=== PATIENT | male | born 1960 | race Caucasian/White ===

== ENCOUNTER 2020-10-28 18:46 | Observation (INO) | payer OTHER ==
--- NOTE | 2020-10-28 19:34 | ED Physician Documentation ---
PD HPI FOCAL NEURO - Stated complaint Stated Complaint: STROKE SYMPTOMS X4 DAYS - Chief complaint Chief Complaint: Neuro - History obtained from History obtained from: Patient, Family, EMS - History of Present Illness Timing - duration: Minutes (5) Timing - details: Abrupt onset, Intermittant Contributing factors: negative: Anticoagulated, Vascular dz, Atrial fibrillation, Prosthetic heart valve Baseline status: positive: A&OX3, ambulatory, indep Similar symptoms before: Has not had sx before Recently seen: Not recently seen - Additional information Additional information: Patient is a 60-year-old male who presents to the emergency department with intermittent strokelike symptoms for the past 4 days. He states that it started about 4 days ago. His states that he was asleep and started screaming in his sleep. When he woke up he walked to the bathroom, fell and struck his head. She states that he was confused for the next 6 hours. He did not know who he was. He kept back asking repetitive questions. Nothing made it better or worse. He did not know the person who had been living in their house with him for the past 2 months. He refused to come in at that time. He states that this afternoon he had difficulty speaking and forming words. He states this lasted about 5 minutes. Nothing made it better or worse. Has not had similar symptoms previously. Upon arrival to the emergency department he had another episode that lasted approximately 2 minutes of difficulty forming words. No numbness or tingling. No focal weakness. No facial droop Review of Systems Ten Systems: 10 systems reviewed and negative Constitutional: denies: Fever, Chills Cardiac: denies: Chest pain / pressure, Palpitations Respiratory: denies: Dyspnea, Cough GI: denies: Abdominal Pain, Nausea, Vomiting, Diarrhea : denies: Dysuria Skin: denies: Rash Musculoskeletal: denies: Neck pain, Back pain Neurologic: denies: Headache PD PAST MEDICAL HISTORY - Past Medical History Past Medical History: No - Past Surgical History Past Surgical History: No - Allergies Allergies/Adverse Reactions: Allergies Allergy/AdvReac Type Severity Reaction Status Date / Time No Known Drug Allergies Allergy Verified 10/28/20 18:59 - Living Situation Living Situation: reports: With family Living Arrangement: reports: At home - Social History Does the pt smoke?: No Does the pt drink ETOH?: Yes Does the pt have substance abuse?: Yes Substance Use and Type: Marijuana - Family History Family history: reports: Non contributory PD ED PE NORMAL - Vitals Vital signs reviewed: Yes - General General: Alert and oriented X 3, No acute distress, Well developed/nourished - HEENT HEENT: PERRL, Other (Small abrasion to the forehead. No scalp hematomas. No palpable fractures.) - Neck Neck: Supple, no meningeal sign - Cardiac Cardiac: RRR, Strong equal pulses - Respiratory Respiratory: No respiratory distress, Clear bilaterally - Abdomen Abdomen: Soft, Non tender, Non distended - Back Back: No spinal TTP - Derm Derm: Warm and dry - Extremities Extremities: No edema, No calf tenderness / cord - Neuro Neuro: Alert and oriented X 3, fulfillment representative 2-12 intact, No motor deficit, No sensory d eficit, Normal speech Eye Opening: Spontaneous Motor: Obeys Commands Verbal: Oriented GCS Score: 15 - Psych Psych: Normal mood, Normal affect NIHSS - Time Time: 19:30 - Level of Consciousness Level of consciousness: (0) Alert, Keenly responsive LOC Questions: (0) Answers both Q's correct LOC Commands: (0) Performs both correctly - Gaze Best Gaze: (0) Normal - Visual Visual: (0) No loss - Facial Palsy Facial Palsy: (0) Normal, symmetrical movement - Motor Arms (both separate) Motor Arm (right): (0) No drift Motor Arm (left): (0) No drift - Motor Legs (both separate) Motor Leg (right): (0) No drift Motor Leg (left): (0) No drift - Limb Ataxia Limb Ataxia: (0) Absent - Sensory Sensory: (0) Normal - Best Language Best Language: (0) No aphasia - Dysarthria Dysarthria: (0) Normal - Extinction and Inattention (formally neg Extinction and inattention: (0) No abnormality - Total Score/Results Total Score/Result: 0 Results - Vitals Vitals: Vital Signs - 24 hr 10/28/20 10/28/20 10/28/20 18:52 19:41 21:54 Temperature 36.7 C Heart Rate 98 64 66 Respiratory 16 16 16 Rate Blood Pressure 163/96 H 154/60 H 119/78 O2 Saturation 98 98 Oxygen O2 Source Room air - EKG (time done) 1906 Rate: Rate (enter#) (74) Rhythm: NSR Prospect: Normal Intervals: Normal SD QRS: Normal Ischemia: Normal ST segments - Labs Labs: Laboratory Tests 10/28/20 10/28/20 10/28/20 19:29 19:29 19:29 WBC 7.5 RBC 5.22 Hgb 15.9 Hct 46.4 MCV 88.9 MCH 30.5 MCHC 34.3 RDW 13.2 Plt Count 326 MPV 9.1 Neut # (Auto) Not Reportable Lymph # (Auto) Not Reportable [place] # (Auto) Not Reportable Eos # (Auto) Not Reportable Baso # (Auto) Not Reportable Absolute Nucleated RBC Not Reportable Total Counted 100 Band Neuts % (Manual) 0 Reactive Lymphs % (Man) 6 Abnorm Lymph % (Manual) 0 Nucleated RBC % Not Reportable Neutrophils # (Manual) 4.4 Lymphocytes # (Manual) 2.5 Monocytes # (Manual) 0.5 Eosinophils # (Manual) 0.1 Basophils # (Manual) 0.0 Differential Comment MANUAL DIFFERENTIAL WBC Morphology NORMAL APPEARANCE Platelet Estimate NORMAL (130-450,000) Platelet Morphology NORMAL APPEARANCE RBC Morph Micro Appear NORMAL APPEARANCE PT 13.2 H INR 1.2 APTT 28.7 Sodium 138 Potassium 3.8 Chloride 104 Carbon Dioxide 25 Anion Gap 9.0 BUN 19 Creatinine 0.8 Estimated GFR (MDRD) 98 Glucose 114 H Calcium 9.0 Total Bilirubin 0.8 AST 29 ALT 43 Alkaline Phosphatase 55 Total Protein 7.5 Albumin 4.4 Globulin 3.1 Albumin/Globulin Ratio 1.4 Lipase 22 Urine Color Urine Clarity Urine pH Ur Specific [place] Urine Protein Urine Glucose (UA) Urine Ketones Urine Occult Blood Urine Nitrite Urine Bilirubin Urine Urobilinogen Ur Leukocyte Esterase Urine RBC Urine WBC Ur Squamous Epith Cells Urine Crystals Amorphous Sediment Urine Bacteria Ur Microscopic Review Urine Culture Comments 10/28/20 19:40 WBC RBC Hgb Hct MCV MCH MCHC RDW Plt Count MPV Neut # (Auto) Lymph # (Auto) [place] # (Auto) Eos # (Auto) Baso # (Auto) Absolute Nucleated RBC Total Counted Band Neuts % (Manual) Reactive Lymphs % (Man) Abnorm Lymph % (Manual) Nucleated RBC % Neutrophils # (Manual) Lymphocytes # (Manual) Monocytes # (Manual) Eosinophils # (Manual) Basophils # (Manual) Differential Comment WBC Morphology Platelet Estimate Platelet Morphology RBC Morph Micro Appear PT INR APTT Sodium Potassium Chloride Carbon Dioxide Anion Gap BUN Creatinine Estimated GFR (MDRD) Glucose Calcium Total Bilirubin AST ALT Alkaline Phosphatase Total Protein Albumin Globulin Albumin/Globulin Ratio Lipase Urine Color YELLOW Urine Clarity HAZY Urine pH 5.5 Ur Specific [place] >=1.030 H Urine Protein 30 H Urine Glucose (UA) NEGATIVE Urine Ketones TRACE Urine Occult Blood LARGE H Urine Nitrite NEGATIVE Urine Bilirubin NEGATIVE Urine Urobilinogen 0.2 (NORMAL) Ur Leukocyte Esterase TRACE H Urine RBC 6-10 H Urine WBC 11-25 H Ur Squamous Epith Cells RARE Squamous Urine Crystals 3-5 Uric Acid Amorphous Sediment Few Urine Bacteria Rare Ur Microscopic Review INDICATED Urine Culture Comments INDICATED - Rads (name of study) head CT w/o Radiology: Prelim report reviewed, EMP read contemporaneously, See rad report (No acute intracranial abnormality) CTA head Radiology: Prelim report reviewed, EMP read contemporaneously, See rad report (No acute abnormality) CTA neck Radiology: Prelim report reviewed, EMP read contemporaneously, See rad report (No acute abnormality) PD MEDICAL DECISION MAKING - ED course Complexity details: reviewed results, re-evaluated patient, considered differential, d/w patient, d/w franchise field consultant ED course: 60-year-old male with what appears to be TIAs. We will place in observation for further work-up including MRI. Discussed the case with Dr. Landers, hospitalist who accepts This document was made in part using voice recognition software. While efforts are made to proofread this document, sound alike and grammatical errors may occur. Departure - Departure Disposition: ED Place in Observation Clinical Impression: TIA (transient ischemic attack), Expressive aphasia Condition: Stable
[2020-10-28 19:38] LABS: BASOPHILS % (AUTO) 0.5 %; EOSINOPHILS % (AUTO) 2.5 %; HCT - HEMATOCRIT 46.4 % (42.0-52.0); HGB - HEMOGLOBIN 15.9 g/dL (14.0-18.0); LYMPHOCYTES % (AUTO) 25.9 %; MEAN CORPUSCULAR HEMOGLOBIN 30.5 pg (27.0-31.0); MEAN CORPUSCULAR HGB CONC 34.3 g/dL (32.0-36.0); MEAN CORPUSCULAR VOLUME 88.9 fL (80.0-94.0); MEAN PLATELET VOLUME 9.1 fL (7.4-11.4); MONOCYTES % (AUTO) 8.4 %; NEUTROPHILS % (AUTO) 62.6 %; PLT - PLATELET COUNT 326 10^3/uL (130-450); RED BLOOD COUNT 5.22 10^6/uL (4.70-6.10); RED CELL DISTRIBUTION WIDTH 13.2 % (12.0-15.0); WHITE BLOOD COUNT 7.5 x10^3/uL (4.8-10.8)
[2020-10-28 19:42] LABS: ABNORMAL LYMPHS % (MANUAL) 0 %; BAND NEUTROPHILS % (MANUAL) 0 %
[2020-10-28 19:49] LABS: ALBUMIN 4.4 g/dL (3.2-5.5); ALBUMIN/GLOBULIN RATIO 1.4 (1.0-2.2); BILIRUBIN,TOTAL 0.8 mg/dL (0.2-1.0); CREATININE 0.8 mg/dL (0.6-1.2); POTASSIUM 3.8 mmol/L (3.5-5.0); TOTAL PROTEIN 7.5 g/dL (6.7-8.2)
[2020-10-28 19:53] LABS: BILIRUBIN,URINE NEGATIVE (NEGATIVE); GLUCOSE, URINE (UA) NEGATIVE (NEGATIVE); KETONES,URINE (UA) TRACE mg/dL (NEGATIVE); LEUKOCYTE ESTERASE, URINE TRACE (NEGATIVE); NITRITE,URINE NEGATIVE (NEGATIVE); OCCULT BLOOD,URINE LARGE (NEGATIVE); PH,URINE 5.5 PH (5.0-7.5); PROTEIN,URINE 30 mg/dL (NEGATIVE); UROBILINOGEN,URINE 0.2 (NORMAL) E.U./dL (NORMAL)
[2020-10-28 19:54] LABS: INR 1.2 (0.8-1.2); PT - PROTHROMBIN TIME 13.2 secs (9.9-12.6)
[2020-10-28 19:54] LABS: CLARITY,URINE HAZY (CLEAR)
[2020-10-28 20:01] LABS: PARTIAL THROMBOPLASTIN TIME 28.7 secs (24.9-33.3)
[2020-10-28 20:08] LABS: AMORPHOUS SEDIMENT,UR Few /LPF; BACTERIA,URINE Rare /HPF (None Seen); CRYSTALS,URINE 3-5 Uric Acid /LPF; SQUAMOUS EPITHELIAL CELL,UR RARE Squamous (<= Few)
--- NOTE | 2020-10-28 20:08 | CT Report ---
PROCEDURE: Head W/O Stroke Protocol INDICATIONS: dysarthria TECHNIQUE: Noncontrast 4.5 mm thick angled axial sections acquired from the foramen magnum to the vertex, with c oronal reformats. For radiation dose reduction, the following was used: automated exposure control, adjustment of mA and/or kV according to patient size. COMPARISON: FINDINGS: Image quality: Excellent. CSF spaces: Basal cisterns are patent. No extra-axial fluid collections. Ventricles are normal in size and shape. Brain: No midline shift. No intracranial masses or hemorrhage. No mass effect. Beth-white matter i nterface is normal. There cerebral volume loss for age with resultant ventricular and sulcal prominen ce. There are periventricular and deep white matter chronic small vessel ischemic changes. Atheroscle rotic calcifications are noted in the intracranial segments of the bilateral internal carotid arterie s. Skull and face: Calvarium and visualized facial bones are intact, without suspicious lesions. Sinuses: Mild scattered ethmoid and sphenoid sinus mucosal thickening. Remainder of the visualized pa ranasal sinuses and mastoids are clear. IMPRESSION: 1. CT head without acute intracranial abnormalities. 2. No acute calvarial fractures. 3. Age-related senescent changes and sequela of chronic small vessel ischemic disease. 4. Mild ethmoid and sphenoid sinus disease. Findings were discussed with Dr. Orellana at 2005 hrs This study fulfills neurological imaging criteria for inclusion or exclusion of acute stroke therapie s based on available published neurological imaging guidelines. Reviewed by: Denzel Maravilla MD on 10/28/2020 8:06 PM PDT Approved by: Denzel Maravilla MD on 10/28/2020 8:06 PM PDT Station ID: [id number]
[2020-10-28 20:32] LABS: DIFFERENTIAL COMMENT MANUAL DIFFERENTIAL; EOSINOPHILS # (MANUAL) 0.1 10^3/uL (0-0.7); LYMPHOCYTES # (MANUAL) 2.5 10^3/uL (1.5-3.5); LYMPHOCYTES % (MANUAL) 27 %; MONOCYTES # (MANUAL) 0.5 10^3/uL (0.0-1.0); NEUTROPHILS # (MANUAL) 4.4 10^3/uL (1.5-6.6); PLATELET ESTIMATE, MANUAL NORMAL (130-450,000) (NORMAL); PLATELET MORPHOLOGY NORMAL APPEARANCE (NORMAL); RBC MORPHOLOGY (MULTIPLE) NORMAL APPEARANCE (NORMAL); REACTIVE LYMPHS % (MANUAL) 6 %; WBC MORPHOLOGY (MULTIPLE) NORMAL APPEARANCE (NORMAL)
[2020-10-28] MEDS ORDERED: IOVERSOL 320 100 ML VIAL IVP ONE ×2 (20:48→22:51)
[2020-10-28] MEDS ORDERED: MORPHINE 2 MG/ML CARPUJECT IVP PRN (23:09)
[2020-10-28] MEDS ORDERED: SODIUM CHLORIDE FLUSH 0.9% 10 ML SYRINGE IVP PRN (23:09)
[2020-10-28] MEDS ORDERED: ACETAMINOPHEN 325 MG TABLET PO PRN (23:09)
[2020-10-28] MEDS ORDERED: ONDANSETRON ODT 4 MG TABLET TL PRN (23:09)
[2020-10-28] MEDS ORDERED: oxyCODONE 5 MG TABLET PO PRN (23:09)
[2020-10-28] MEDS ORDERED: ASPIRIN 325 MG TABLET PO STA (23:11)
--- NOTE | 2020-10-28 23:18 | HISTORY & PHYSICAL EXAMINATION ---
Chief Complaint - Chief Complaint Chief Complaint: Expressive aphasia History of Present Illness - Admitted From Admitted From:: Home - History Obtained From Records Reviewed: [facility] History obtained from: Dr. Orellana Exam Limitations: None - History of Present Illness HPI Comment/Other: The patient is a 60-year-old male who does not have any past medical history of diabetes, hypertension, hyperlipidemia. He occasionally smokes marijuana but he does not smoke nicotine. He has no history of alcohol abuse. He states that he does not have a primary care provider that he is seen in a very long time. He is a [facility] patient and is establish himself with a new provider but has not seen her yet. 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 He said it was at some clinic that he can even remember where that was. He presented to the emergency room today via EMS when family called them. Today's Tuesday. On Tuesday, 4 days ago, he awoke from sleep, seemed startled, and was screaming in his sleep. He did stop screaming but developed confusion. He says he remembers things but did not understand why he was doing what he was doing. For instance he gives me an exa mple of grabbing his 's shirt, balling it up in his hands, letting it go. But doing it repetitively, over and over. The confusion lasted for about 6 hours. Although his was present, in front of him, speaking to him, she stated "it is as if I was not there." During that episode of confusion he got up to go to the bathroom and fell and hit his head. It was a witnessed fall. His was behind him as she helped him go to the bathroom. He tripped over the bathroom rug. No loss of consciousness, no dizziness. He landed on his left shoulder, hit his chin, and the top of his head/forehead. No loss of consciousness. He kept on asking repetitive questions. He did not recognize people who were living in the home with him. He refused to come be evaluated. Today he had a 5-minute episode where he had difficulty speaking and could not form his words. 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 He been on the phone all day long, and was also completing an article. 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 He was on the phone with the client when he suddenly found himself unable to express what he wanted to say. He could hear her, understand her, but he could not respond back. There is been no antecedent fever, chills, headache. He denied any facial droop, dysarthria, unilateral weakness of any limb. He did feel like he was suddenly "top-heavy". It felt as if the top of his head was full of fluid and that he was suddenly off balance. Other than that one fall in the bathroom, the does not report any other falls. He denies a history of palpitations, fast heart rate, leg edema, orthopnea. He denies a history of obs tructive sleep apnea. He is currently trying to diet and exercise. He was over 350 pounds. He is lost about 75 pounds. He denies using any ikry-ahr-depocnn diet medications. He has no history of substance abuse. Although he uses cannabis, he denies cocaine/heroin, methamphetamines, ecstasy, etc. He was evaluated in the emergency room by Dr. Orellana. Temperature was 36.7. Heart rate 98. Blood pressure 163/96. Respirations 16 and 98% on room air. He was alert and oriented in the emergency room without any motor deficit. Cranial nerves were intact. He had normal speech. He was keenly responsive and NIHSS score was 0. CT of the head is negative. CT angiogram was also done and final report is not available to me. Dr. Sanchez verbally reported that he has no "carotid stenosis, intracranial blocked arteries". Patient is now placed in observation for TIA. History - Past Medical History Cardiovascular: reports: Other (Morbid obesity) Respiratory: reports: None Neuro: reports: None Endocrine/Autoimmune: reports: None GI: reports: None : reports: None HEENT: reports: None Psych: reports: None Musculoskeletal: reports: Other (Right knee infection requiring surgery and treatment 1993.) Derm: reports: None MRSA Hx?: No - Past Surgical History HEENT: reports: Tonsil/Adenoidectomy - Family & Social History Family History Comment/Other: Mom at age 80. She of metastatic breast cancer. Dad at approximately age 76. There is a question if he was truly his father. He was an alcoholic, diabetic, and after fading away from being on dialysis. 1 brother has alcohol abuse issues. He is not in contact with him. No children. Living arrangement: At home Living Situation: With spouse/s.o. Social History Notes: He is from [place]. Moved to [place] at the age of 1 due to his father's work. Grew up in [place], moved to [facility] in [place]. Retired as a electrical research engineer in 2007. He has been to his first for 36 years. They consciously decided not to have any children. He drinks maybe 1 beer a month. Denies any history of recreational substance abuse other than cannabis. Has never smoked tobacco products. - POLST Patient has POLST: No POLST Status: DNR (He says that he has paperwork at home, he does not want to be resuscitated if he has a cardiopulmonary arrest. However he would like all other measures done including transfusions, antibiotics, surgeries, BiPAP, oxygen, ICU care with pressors, etc. if needed) Meds/Allgy - Allergies Allergies/Adverse Reactions: Allergies Allergy/AdvReac Type Severity Reaction Status Date / Time No Known Drug Allergies Allergy Verified 10/28/20 18:59 Review of Systems - Other Findings Other Findings: 13 point review of systems is negative other than what is in history of present illness. The only positive findings that he also describes is out of increased urinary frequency, nocturia is 2-3 times a night. Denies erectile dysfunction. Prior Level of Functionality: Patient is completely independent with activities of daily living, pays bills, drives a car, does household assistant. Still running a business out of his home. Exam - Vital Signs Reviewed Vital Signs: Yes Vital Signs: Vital Signs x48h Temp Pulse Resp BP Pulse Ox 10/28/20 21:54 66 16 119/78 98 10/28/20 19:41 64 16 154/60 H 10/28/20 18:52 36.7 C 98 16 163/96 H 98 - Physical Exam General Appearance: positive: No acute distress, Alert, Other (5 foot 8 inch morbidly obese male 118 kg.Bearded, lucid, normal speech patterns.) Eyes Bilateral: positive: PERRL, EOMI ENT: positive: Pharynx nml Neck: positive: No JVD. negative: Lymphadenopathy (R), Lymphadenopathy (L), Stiff neck, Carotid bruit Respiratory: positive: No respiratory distress, Other (Large barrel chest). negative: Wheezes, Rales, Rhonchi Cardiovascular: positive: Regular rate & rhythm, No murmur, No gallop. negative: Friction rub Peripheral Pulses: positive: 1+ Abdomen: positive: Non-tender, No organomegaly, Nml bowel sounds, No distention, Other (Protuberant, large abdominal pannus) Skin: positive: Warm, Dry. negative: Diaphoresis, Pallor Extremities: positive: Non-tender, Full ROM, Nml appearance Neurologic/Psychiatric: positive: Oriented x3, CN's nml (2-12), Motor nml, Sensation nml Reflexes: Bicep (R): 3+, Bicep (L): 3+, Knee (R): 2+, Knee (L): 2+, Ankle (R): 1+, Ankle (L): 1+ Babinski Reflex: Right: Down, Left: Down Conclusion/Plan - Problem List (1) TIA (transient ischemic attack) Conclusion/Plan: This is a gentleman who is 60 years old and risk factors include male sex but no diabetes, hypertension, hyperlipidemia. He does not smoke. Negative family history. He presents as an interesting episode of screaming a few days ago, waking him from sleep. Then confusion. This lasted about 6 hours. Refused to come in. Now he has had 5 minutes of expressive aphasia at home, and 2 minutes of expressive aphasia here. ABCD 2 score calculation is 3 points. He has a low stroke risk of 1%. With that in mind, aspirin 325 mg alone without Plavix would be indicated. This is an unusual presentation. It only involves speech, the repetitive statem ents. Also the unconscious grabbing and needing of objects. No associated focal deficits.I have thought about substance abuse, meningitis, arrhythmia as a possible cause. Plan: Observation status Aspirin 325 daily with first dose now Lipid panel in a.m. Permissive hypertension. MRI of head Echocardiogram Telemetry No lumbar puncture at this time Recommend neurology evaluation. He will keep his appointment with his primary care provider through [facility], and have asked him to make sure they refer him to neurology for an opinion. - Lab Results Lab results reviewed: Yes Fish Bones: 10/28/20 19:29 10/28/20 19:29 - Diagnostic Imaging Results Diagnostic Imaging Results: positive: Final report reviewed Diagnostic Imaging Results Comments: Head CT without acute intracranial abnormalities. No acute calvarial fractures. Age-related senescent changes, mild ethmoid and sphenoid sinus disease. CT angiogram report was called to Dr. Sanchez. He verbally reported that he has no carotid stenosis or intracranial arterial disease. Final report pending - EKG Results EKG Interpreted Independently: No Core Measures - Anticipated LOS I expect patient to be DC'd or transferred within 96 hours.: Yes - DVT/VTE - Prophylaxis VTE/DVT Device ordered at admit?: Yes
[2020-10-29] MEDS: SODIUM CHLORIDE FLUSH 0.9% 10 ML SYRINGE IVP SCH ×2 (00:19→09:55)
[2020-10-29 03:23] LABS: B. PARAPERTUSSIS- RESP PCR PAN NOT DETECTED; B. PERTUSSIS- RESP PCR PANEL NOT DETECTED; C. PNEUMONIAE- RESP PCR PANEL NOT DETECTED; CORONAVIRUS 229E-RESP PCR NOT DETECTED; CORONAVIRUS HKU1-RESP PCR NOT DETECTED; CORONAVIRUS NL63-RESP PCR NOT DETECTED; CORONAVIRUS OC43-RESP PCR NOT DETECTED; HUMAN METAPNEUMOVIRUS NOT DETECTED; INFLUENZA A- RESP PCR PANEL NOT DETECTED; INFLUENZA B - RESP PCR PANEL NOT DETECTED; M. PNEUMONIAE- RESP PCR PANEL NOT DETECTED; PARAINFLUENZA VIRUS 1 NOT DETECTED; PARAINFLUENZA VIRUS 2 NOT DETECTED; PARAINFLUENZA VIRUS 3 NOT DETECTED; PARAINFLUENZA VIRUS 4 NOT DETECTED; RHINOVIRUS/ENTEROVIRUS NOT DETECTED; RSV- RESP PCR PANEL NOT DETECTED; SARS-CoV-2 -RESP PCR PANEL NOT DETECTED
[2020-10-29 08:20] LABS: BASOPHILS # (AUTO) 0.1 10^3/uL (0.0-0.1); BASOPHILS % (AUTO) 0.7 %; EOSINOPHILS % (AUTO) 0.1 %; HCT - HEMATOCRIT 44.9 % (42.0-52.0); HGB - HEMOGLOBIN 15.5 g/dL (14.0-18.0); LYMPHOCYTES # (AUTO) 1.8 10^3/uL (1.5-3.5); LYMPHOCYTES % (AUTO) 25.3 %; MEAN CORPUSCULAR HEMOGLOBIN 30.6 pg (27.0-31.0); MEAN CORPUSCULAR HGB CONC 34.5 g/dL (32.0-36.0); MEAN CORPUSCULAR VOLUME 88.7 fL (80.0-94.0); MONOCYTES # (AUTO) 0.6 10^3/uL (0.0-1.0); MONOCYTES % (AUTO) 8.7 %; NEUTROPHILS # (AUTO) 4.5 10^3/uL (1.5-6.6); NEUTROPHILS % (AUTO) 64.9 %; PLT - PLATELET COUNT 295 10^3/uL (130-450); RED BLOOD COUNT 5.06 10^6/uL (4.70-6.10); RED CELL DISTRIBUTION WIDTH 13.2 % (12.0-15.0); WHITE BLOOD COUNT 6.9 x10^3/uL (4.8-10.8)
[2020-10-29 08:37] LABS: BUN - BLOOD UREA NITROGEN 19 mg/dL (6-20); CALCIUM 8.8 mg/dL (8.5-10.3); CARBON DIOXIDE - CO2 26 mmol/L (21-32); CHLORIDE 102 mmol/L (101-111); CHOL/HDL RATIO 6.2 (<5.0); CHOLESTEROL 193 mg/dL; CREATININE 0.8 mg/dL (0.6-1.2); GFR - MDRD 98 (>89); GLUCOSE 127 mg/dL (70-100); HDL CHOLESTEROL 31 mg/dL; LDL CHOLESTEROL,CALCULATED 142 mg/dL; LDL/HDL RATIO 4.6 (<3.6); POTASSIUM 3.8 mmol/L (3.5-5.0); SODIUM 138 mmol/L (135-145); TRIGLYCERIDES 102 mg/dL; VLDL CHOLESTEROL 20 mg/dL
--- NOTE | 2020-10-29 08:50 | CT Report ---
PROCEDURE: ANGIO HEAD W/WO INDICATIONS: dysarthria, aphasia CONTRAST: IV CONTRAST: Optiray 320 ml: 80 PO CONTRAST: *NO PO CONTRAST TECHNIQUE: Precontrast 4.5 mm thick angled axial sections acquired from the foramen magnum to the vertex. Afte r the administration of intravenous contrast, 1 mm thick sections acquired through the [place] of [place] is. Postcontrast 4.5 mm thick sections then re-acquired from the foramen magnum to the vertex. 3-di mensional meoipip-vsyhphhbx-umhucsatys (MIP) and/or volume rendering reformats were acquired of the c entral intracranial vasculature. For radiation dose reduction, the following was used: automated ex posure control, adjustment of mA and/or kV according to patient size. COMPARISON: Head CT same day. FINDINGS: Image quality: Excellent. Anterior circulation: Intracranial internal carotid arteries are normal in size and flow. The flow within the paired anterior cerebral arteries is normal and symmetric. The flow within the middle cer ebral arteries is normal and symmetric. The anterior communicating artery is seen. No aneurysms are seen. Posterior circulation: Visualized portions of the vertebral arteries demonstrate normal caliber, and join to form a normal appearing basilar artery. Flow within the posterior cerebral arteries is norm al and symmetric. No aneurysms are seen. CSF spaces: Ventricles are normal in size and shape. Basal cisterns are patent. No extra-axial flu id collections. Brain: No midline shift. No intracranial bleeds or masses. Beth-white matter interface appears int act. Skull and face: Calvarium and facial bones appear intact, without suspicious lesions. Sinuses: Visualized sinuses and mastoids are clear. IMPRESSION: No abnormalities found. Reviewed by: Otto Romero MD on 10/29/2020 8:49 AM PDT Approved by: Otto Romero MD on 10/29/2020 8:49 AM PDT Station ID: [id number]
--- NOTE | 2020-10-29 08:52 | CT Report ---
PROCEDURE: ANGIO NECK W INDICATIONS: dysarthria, aphasia CONTRAST: IV CONTRAST: Optiray 320 ml: 80 PO CONTRAST: *NO PO CONTRAST TECHNIQUE: After the administration of intravenous contrast, 1.5 mm axial sections acquired from the aortic arch to the [place] of [place]. Coronal 3-D maximum intensity projection (MIP) and/or volume rendering ref ormats were then performed. For radiation dose reduction, the following was used: automated exposur e control, adjustment of mA and/or kV according to patient size. COMPARISON: None. FINDINGS: Image quality: Excellent. Carotid system: The great vessels demonstrate a conventional anatomy as they arise from the aortic a [facility]. The origins of the common carotid arteries appear patent. The common carotid arteries demonstr ate normal calibers and courses. The bifurcation regions appear normal bilaterally. The internal ca rotid arteries demonstrate normal caliber and course. Posterior circulation: The origins of the vertebral arteries appear patent. The more superior porti ons of the vertebral arteries demonstrate normal course and caliber. They join to form a normal appe aring basilar artery. Soft tissues: Visualized neck soft tissues demonstrate no suspicious abnormalities. The thyroid is normal in size and there are no incidental findings. Bones: No suspicious bony lesions. Visualized cervical spine appears normally aligned. IMPRESSION: No vascular abnormality found. No sign of stroke or hemorrhage. The estimate of stenosis included in the report of the imaging study was calculated using the NASCET method Reviewed by: Otto Romero MD on 10/29/2020 8:50 AM PDT Approved by: Otto Romero MD on 10/29/2020 8:50 AM PDT Station ID: [id number]
[2020-10-29] MEDS ORDERED: CEFPODOXIME PROXETIL 100 MG TABLET PO SCH (09:00)
[2020-10-29] MEDS ORDERED: ASPIRIN CHEW 81 MG TABLET PO SCH (09:00)
[2020-10-29 12:11] LABS: ESTIMATED AVERAGE GLUCOSE 137 mg/dL (70-100); HEMOGLOBIN A1c% 6.4 % (4.27-6.07)
--- NOTE | 2020-10-29 13:42 | Discharge Plan ---
Discharge Plan Problem Reviewed?: Yes Disposition: Home, Self Care Condition: Stable Prescriptions: Atorvastatin [Lipitor] 40 mg PO QPM #30 tablet Aspirin Chewable [St Héctor Aspirin] 81 mg PO DAILY #30 tablet Cefpodoxime Proxetil [Vantin] 100 mg PO BID #9 tablet Diet: Regular Activity Restrictions: Activity as Tolerated Instruction Topics: Transient Ischemic Attack Dc Health Concerns: You were admitted to the hospital because of concern for a TIA which is similar to a mini stroke. We did a CT scan of your head which showed no obvious blockages or evidence of stroke. You monitor your heart rhythm which has been normal. We did an ultrasound of your heart which was unremarkable. MRI was done which showed no evidence of stroke. Your cholesterol was noted to be a little bit high and so we have started you on a medication called Lipitor. He will also need to take aspirin. Both of these medications help reduce your risk of stroke. Your urine also revealed bacteria and white cells in it. Although you have no symptoms, there is concern for a possible urinary tract infection and so we have started you on antibiotics which you will need to take as prescribed. Plan of Treatment: Please take aspirin 81 mg daily and Lipitor 40 mg in the evening. This is to help reduce your risk of stroke in the future. Please take the antibiotic Vantin twice a day to complete 5 days of therapy. This is for a possible urinary tract infection. Please follow-up with your primary care provider and a referral to neurology should be considered. It is also recommended that you check your blood pressure at home and to follow-up with your primary care provider if it is elevated above 140mmHg. Assessment: The patient expressed understanding of the treatment plan. Additional Instructions or Follow Up instructions: Please follow-up with your primary care provider. Please return to the emergency department if you develop any difficulty with speech or weakness. No Smoking: If you smoke, Please STOP! Call for help. Follow-up with: Provider,Other [Primary Care Provider] -
--- NOTE | 2020-10-29 13:49 | DISCHARGE SUMMARY ---
Discharge Summary Admit Date: 10/29/20 Discharge Date: 10/30/20 Discharging Provider: Arnie Maguire Primary Care Provider: No PCP Code Status: Do Not Attempt Resuscitation Condition at Discharge: Stable Discharge Disposition: 01 Home, Self Care - DIAGNOSES Admission Diagnoses: TIA Discharge Diagnoses with Status of Each Condition: TIA - resolved. - HPI History of Present Illness: H&P per Dr. Landers: The patient is a 60-year-old male who does not have any past medical history of diabetes, hypertension, hyperlipidemia. He occasionally smokes marijuana but he does not smoke nicotine. He has no history of alcohol abuse. He states that he does not have a primary care provider that he is seen in a very long time. He is a [facility] patient and is establish himself with a new provider but has not seen her yet. 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 He said it was at some clinic that he can even remember where that was. He presented to the emergency room today via EMS when family called them. Today's Tuesday. On Tuesday, 4 days ago, he awoke from sleep, seemed startled, and was screaming in his sleep. He did stop screaming but developed confusion. He says he remembers things but did not understand why he was doing what he was doing. For instance he gives me an example of grabbing his 's shirt, balling it up in his hands, letting it go. But doing it repetitively, over and over. The confusion lasted for about 6 hours. Although his was present, in front of him, speaking to him, she stated "it is as if I was not there." During that episode of confusion he got up to go to the bathroom and fell and hit his head. It was a witnessed fall. His was behind him as she helped him go to the bathroom. He tripped over the bathroom rug. No loss of consciousness, no dizziness. He landed on his left shoulder, hit his chin, and the top of his head/forehead. No loss of consciousness. He kept on asking repetitive questions. He did not recognize people who were living in the home with him. He refused to come be evaluated. Today he had a 5-minute episode where he had difficulty speaking and could not form his words. 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 He been on the phone all day long, and was also completing an article. 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 He was on the phone with the client when he suddenly found himself unable to express what he wanted to say. He could hear her, understand her, but he could not respond back. There is been no antecedent fever, chills, headache. He denied any facial droop, dysarthria, unilateral weakness of any limb. He did feel like he was suddenly "top-heavy". It felt as if the top of his head was full of fluid and that he was suddenly off balance. Other than that one fall in the bathroom, the does not report any other falls. He denies a history of palpitations, fast heart rate, leg edema, orthopnea. He denies a history of obstructive sleep apnea. He is currently trying to diet and exercise. He was over 350 pounds. He is lost about 75 pounds. He denies using any over-the-co unter diet medications. He has no history of substance abuse. Although he uses cannabis, he denies cocaine/heroin, methamphetamines, ecstasy, etc. He was evaluated in the emergency room by Dr. Orellana. Temperature was 36.7. Heart rate 98. Blood pressure 163/96. Respirations 16 and 98% on room air. He was alert and oriented in the emergency room without any motor deficit. Cranial nerves were intact. He had normal speech. He was keenly responsive and NIHSS score was 0. CT of the head is negative. CT angiogram was also done and final report is not available to me. Dr. Sanchez verbally reported that he has no "carotid stenosis, intracranial blocked arteries". Patient is now placed in observation for TIA. - CONSULTS | PROCEDURES Procedures: Preliminary echocardiogram revealed a preserved ejection fraction without any significant valvular disease. - HOSPITAL COURSE Hospital Course: The patient was placed in observation for TIA. He was given 325 mg of aspirin and started on Lipitor. CT angiogram did not reveal any significant stenosis. Echocardiogram revealed a preserved ejection fraction without any significant valvular disease. He has been in sinus rhythm throughout this hospitalization. He underwent MRI which showed no evidence of stroke. He was discharged home on aspirin 81 mg and Lipitor 40 mg in the evening. He was asked to follow-up with neurology and to return if he had any other neuro deficits. - ALLERGIES Allergies/Adverse Reactions: Allergies Allergy/AdvReac Type Severity Reaction Status Date / Time No Known Drug Allergies Allergy Verified 10/28/20 18:59 - MEDICATIONS Home Medications: Ambulatory Orders Medication Instructions Recorded Confirmed Aspirin Chewable [St Héctor 81 mg PO DAILY #30 tablet 10/29/20 Aspirin] Atorvastatin [Lipitor] 40 mg PO QPM #30 tablet 10/29/20 Cefpodoxime Proxetil [Vantin] 100 mg PO BID #9 tablet 10/29/20 - PHYSICAL EXAM AT DISCHARGE General Appearance: positive: No acute distress, Alert Eyes Bilateral: positive: Normal inspection, Conjunctivae nml ENT: positive: ENT inspection nml Neck: positive: Nml inspection Respiratory: positive: No respiratory distress. negative: Wheezes, Rales Cardiovascular: positive: Regular rate & rhythm, No murmur. negative: Tachycardia, Systolic murmur Abdomen: positive: Non-tender, No distention. negative: Tenderness, Guarding, Rebound Skin: positive: Warm, Dry Extremities: positive: No pedal edema Neurologic/Psychiatric: positive: Oriented x3. negative: Disoriented to person, Disoriented to place, Disoriented to time Physical Exam Other/Comments: Vital Signs - 24 hr 10/28/20 10/28/20 10/28/20 19:41 21:54 23:17 Temperature 36.6 C Heart Rate 64 66 69 Heart Rate [ Radial] Respiratory 16 16 21 Rate Blood Pressure 154/60 H 119/78 145/96 H Blood Pressure [Right Radial artery] O2 Saturation 98 96 10/29/20 10/29/20 10/29/20 00:13 04:47 09:00 Temperature 36.6 C 36.5 C 36.2 C L Heart Rate Heart Rate [ 62 63 61 Radial] Respiratory 16 16 16 Rate Blood Pressure Blood Pressure 156/94 H 135/76 H 136/92 H [Right Radial artery] O2 Saturation 97 99 99 10/29/20 13:00 Temperature 37.1 C Heart Rate Heart Rate [ 68 Radial] Respiratory 18 Rate Blood Pressure Blood Pressure 145/86 H [Right Radial artery] O2 Saturation 96 Oxygen O2 Source Room air - LABS Result Diagrams: 10/29/20 08:12 10/29/20 08:12 - DIAGNOSTIC IMAGING Diagnostic Imaging Results: Final report reviewed - FOLLOW UP Follow Up: He was asked to follow-up with his primary care provider and to have a referral to neurology. - TIME SPENT Time Spent in Discharge (Minutes): 32
--- NOTE | 2020-10-29 14:14 | MRI Report ---
PROCEDURE: Brain W/O INDICATIONS: Neuro deficit. Resolved. TECHNIQUE: Noncontrast axial T1 spin echo, axial T2 fast spin echo, sagittal and axial FLAIR, coronal T2 fast sp in echo, axial gradient echo, axial diffusion and ADC through the brain. COMPARISON: None. FINDINGS: Image quality: Excellent. CSF Spaces: Basal cisterns are patent. No extra-axial fluid collections. Ventricles are normal in size and shape. Brain: No intracranial masses or hemorrhage. Beth/white matter interface is normal. Brainstem appe ars normal. Diffusion-weighted images demonstrate no acute ischemic insult. No chronic ischemic ins ults. Normal intravascular flow voids are present. Skull and face: Calvarium has normal marrow signal. Orbits appear normal. Sinuses: Sinuses and mastoids are clear. IMPRESSION: There is mild microvascular atherosclerotic change in the deep white matter of each hemisphere but no sign of acute or subacute stroke, mass, hemorrhage, or ventriculomegaly. No acute disease. Reviewed by: Otto Romero MD on 10/29/2020 2:12 PM PDT Approved by: Otto Romero MD on 10/29/2020 2:12 PM PDT Station ID: [id number]
[2020-10-29 14:46] VITALS: BP 145/86
[2020-10-29] MEDS ORDERED: ATORVASTATIN 40 MG TABLET PO SCH (21:00)
== END 2020-10-29 15:14 | disposition home or self-care (01) ==
LOC: ED 18:46 → MS2 23:09
PROVIDERS: ADMIT Specialist; ATTEND Internal Medicine
DX: G45.9 Transient cerebral ischemic attack, unspecified (principal); R29.700 NIHSS score 0; Z20.822 Contact with and (suspected) exposure to COVID-19; Z91.81 History of falling; Z66 Do not resuscitate; R35.0 Frequency of micturition; R35.1 Nocturia; E66.01 Morbid (severe) obesity due to excess calories
CPT/HCPCS: 0202U; 36415; 70450; 70496; 70498; 70551; 80048; 80053; 80061; 81001; 83036; 83690; 85025; 85610; 85730; 87086; 93005; 93306; 99285; A9270; G0378; Q9967; 81003; 83721

== ENCOUNTER 2020-11-09 03:56 | Outpatient (CLI) | payer OTHER | END 2020-11-09 03:57 | disposition EMS.NT | LOC: EMS 03:56 | DX: R56.9 Unspecified convulsions (principal) ==

== ENCOUNTER 2021-07-01 15:00 | Outpatient (CLI) | payer OTHER ==
--- NOTE | 2021-07-01 16:15 | Ultrasound Report ---
PROCEDURE: Head or Neck Soft Tissue INDICATIONS: FATIGUE TECHNIQUE: Real time scanning was performed of the neck region of interest, with image documentation . COMPARISON: None. FINDINGS: Normal size and homogeneous echogenicity/echotexture of the thyroid gland. No thyroid nodul e or mass identified. The thyroid lobes measure 1.5 x 2.1 x 3.9 cm on the right and 1.1 x 1.3 x 3.37 m on the left. The isthmus measures 5 mm in thickness. IMPRESSION: Normal thyroid ultrasound. Reviewed by: Edi Carmona MD on 07/01/2021 4:13 PM PST Approved by: Edi Carmona MD on 07/01/2021 4:13 PM PST Station ID: [id number]
== END 2021-07-01 15:01 | disposition home or self-care (01) ==
LOC: DI 15:00
PROVIDERS: ATTEND Internal Medicine
DX: R53.81 Other malaise (principal)

== ENCOUNTER 2023-11-18 12:37 | Outpatient (CLI) | payer MEDICARE, OTHER ==
[2023-11-18] MEDS ORDERED: GADOTERATE MEGLUMINE 5 MMOL/10 ML VIAL ONE (12:53)
[2023-11-18] MEDS ORDERED: GADOTERATE MEGLUMINE 10 MMOL/20 ML VIAL ONE (12:53)
[2023-11-18] MEDS: GADOTERATE MEGLUMINE 10 MMOL/20 ML VIAL IVP ONE (14:29)
--- NOTE | 2023-11-18 19:05 | MRI Report ---
PROCEDURE: Brachial Plexus W/WO INDICATIONS: CERVICAL RADICULOPATHY, PARESTHESIA OF SKIN CONTRAST: CLARISCAN 23.6 ML TECHNIQUE: Noncontrast axial, coronal, and sagittal T1 spin echo and STIR through the affected brachial plexus r egion. Additional axial T1 spin echo and coronal T2 fast spin echo acquired through both brachial pl exuses with a large [id number]. Optional contrast may be given, followed by axial, coronal, and s agittal T1 spin echo with fat saturation through the affected side. COMPARISON: Correlation is made with the accompanying imaging. FINDINGS: Image quality: Motion artifact is noted. This study is limited by body habitus. Brachial plexus: Screening is given to the right brachial plexus. No significant abnormality is seen . No masses or abnormal signal can be seen along its course. No abnormal enhancement can be seen. Soft tissues: No supraclavicular adenopathy by size criteria. Superior pleural surfaces are normal in thickness. Jugular veins and carotid arteries appear normal in size. Bones: Marrow demonstrates normal overall signal. There is made of focal degenerative change of the right shoulder, with a joint effusion present. IMPRESSION: Limited study demonstrating no focal abnormality of the right brachial plexus. Focal degenerative change of the right shoulder noted. Reviewed by: Nils Chapman MD on 11/18/2023 6:03 PM DARYA Approved by: Nils Chapman MD on 11/18/2023 6:03 PM DARYA Station ID: [id number]
--- NOTE | 2023-11-18 19:13 | MRI Report ---
PROCEDURE: Cervical Spine W/WO INDICATIONS: CERVICAL RADICULOPATHY, PARESTHESIA OF SKIN CONTRAST: CLARISCAN 23.6 ML TECHNIQUE: Noncontrast sagittal T1 spin echo and T2 fast spin echo, sagittal STIR, sagittal PD fast spin echo, f oraminal oblique sagittal T2 fast spin echo, axial gradient echo or T2 fast spin echo through the cer vical spine. After the administration of contrast, sagittal and axial T1 spin echo with fat saturati on through the cervical spine. COMPARISON: Correlation is made with the accompanying imaging. FINDINGS: Image quality: This study is limited by body habitus. Motion artifact is noted. Alignment and curvature: There is overall straightening of the normal cervical lordosis. Minimal ret rolisthesis can be seen at the C3-C4 and the C4-C5 levels. Marrow: Marrow demonstrates normal overall signal. Spinal cord: Visualized spinal cord is normal in size, without white matter lesions. No suspicious intramedullary enhancement. No cerebellar tonsillar herniation. Paraspinous soft tissues: No paravertebral masses or suspicious enhancement. C2-C3: Mild loss of disc height and disc signal are seen. Mild to moderate disc osteophyte complex i s seen. Mild to moderate facet hypertrophy is seen. Moderate to severe bilateral neuroforaminal narro wing is seen. No significant central canal narrowing is seen. C3-C4: At least moderate loss of disc height and disc signal can be seen. At least moderate disc ost eophyte complex is seen, with a central disc osteophyte protrusion. Uncovertebral joint hypertrophy is seen at this level. Moderate facet hypertrophy is seen. There is moderate to severe bilateral neuroforaminal narrowing seen. Moderate central canal narrowing is seen. Associated mass effect is seen upon the ventral spinal cord. C4-C5: At least moderate loss of disc height and disc signal can be seen. At least moderate disc ost eophyte complex is seen, with a central disc osteophyte protrusion. Mild facet hypertrophy is seen. Moderate to severe bilateral neuroforaminal narrowing is seen. Moderate central canal narrowing is seen. Associated mass effect is seen upon the ventral spinal cord. C5-C6: Mild loss of disc height and disc signal are seen. Mild to moderate disc osteophyte complex i s seen. Mild to moderate facet hypertrophy can be seen at this level. There is moderate to severe adam ateral neuroforaminal narrowing, right worse than left. Mild to moderate central canal narrowing is s een at this level. C6-C7: Moderate loss of disc height and signal are seen. At least moderate disc osteophyte complex i s seen, with a central disc osteophyte protrusion. Mild facet hypertrophy is seen. Moderate to sever e bilateral neuroforaminal narrowing can be seen, right worse than left. Moderate central canal narr owing is seen. Associated mass effect is seen upon the ventral spinal cord. C7-T1: Moderate loss of disc height and signal are seen. Mild to moderate disc osteophyte complex is seen. Mild facet hypertrophy is seen. There is moderate to severe right-sided and moderate left-carlee ed neuroforaminal narrowing. Mild to moderate central canal narrowing is seen. IMPRESSION: Multilevel levels of cervical spine degenerative change can be seen, which are overall most prominent at the C3-C4 level. Reviewed by: Nils Chapman MD on 11/18/2023 6:12 PM DARYA Approved by: Nils Chapman MD on 11/18/2023 6:12 PM DARYA Station ID: [id number]
== END 2023-11-18 12:38 | disposition home or self-care (01) ==
LOC: DI 12:37
PROVIDERS: ATTEND Psychiatry & Neurology Neurology
DX: R20.2 Paresthesia of skin (principal); M47.22 Other spondylosis with radiculopathy, cervical region; M19.011 Primary osteoarthritis, right shoulder
CPT/HCPCS: 72156; 73223; A9575